=== PATIENT | female | born 1935 | race Caucasian/White ===

== ENCOUNTER 2021-09-16 14:02 | Outpatient (CLI) | payer MEDICARE | END 2021-09-16 14:03 | disposition home or self-care (01) | LOC: CSHRAD 14:02 | PROVIDERS: ATTEND Internal Medicine Rheumatology | DX: M48.062 Spinal stenosis, lumbar region with neurogenic claudication (principal); M54.50 Low back pain, unspecified; M47.816 Spondylosis without myelopathy or radiculopathy, lumbar region | CPT/HCPCS: 72110 ==